=== PATIENT | male | born 1965 | race Two or more races ===

== ENCOUNTER 2017-04-02 13:31 | Emergency (ER) | payer MEDICARE, MEDICAID ==
--- NOTE | 2017-04-05 13:52 | ER ---
ADMIT: 04/02/2017 RM/LOC: ER [facility] MR#: [id number] [address] [id number] [address] [place] [address] Emergency Room Report SEX: M AGE: 51 : 1965 DATE: 04/02/2017 CHIEF COMPLAINT: Dog bite. HISTORY OF PRESENT ILLNESS: A 51-year-old white male, who presents after sustaining a dog bite at home prior to arrival. reports that she found a person on the Internet working for dog care services. They have been watching this dog. He states today that the patient got close to the dog food source. The animal lashed out sustaining multiple injuries to his lower legs. 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 He otherwise appears well. Animal control was notified. Injuries primarily on the left and right lower leg. Otherwise, feels well today. COURSE IN THE EMERGENCY ROOM: The patient was seen, examined, afebrile, and nontoxic. No acute distress. He does have a small laceration puncture wound just above the left knee. He also has a small superficial laceration on the medial side of the right knee as well as a linear 4 cm superficial laceration just above the right ankle. Neurovascularly, the patient is intact. His wounds were thoroughly cleaned with Ultradex. They were dressed appropriately. IMPRESSION: Superficial dog bite bilateral lower legs. DISPOSITION: The patient started on Augmentin 500 mg b.i.d. for 5 days. He is to keep this covered and dry for the next 24 hours. Wash daily with warm soapy water thereafter. Tylenol or Motrin for significant pain. Continue home medications. Return with worsening signs or symptoms. Follow up PCP as needed. JULIAN Gonzalez / Isaiah Albright MD / ed JOB #: [id number] CC: Isaiah Albright MD, Attending Physician Gail Liao MD, Family Physician
== END 2017-04-02 14:20 | disposition home or self-care (01) ==
LOC: ER 13:31
DX: S80.872A Other superficial bite, left lower leg, initial encounter (principal); S80.871A Other superficial bite, right lower leg, initial encounter; F17.210 Nicotine dependence, cigarettes, uncomplicated; Z79.899 Other long term (current) drug therapy; W54.0XXA Bitten by dog, initial encounter; Y92.009 Unspecified place in unspecified non-institutional (private) residence as the place of occurrence of the external cause